=== PATIENT | female | born 1980 | race Caucasian/White ===

== ENCOUNTER → 2017-10-21 | Outpatient (CLI) | payer BC | LOC: M WUC 19:19 | DX: M79.671 Pain in right foot (principal) | CPT/HCPCS: 73630 ==

== ENCOUNTER 2019-05-13 19:23 | Emergency (ER) | payer BC ==
[~2019-05-13] VITALS: Ht 160 cm; Wt 72.7 kg
[2019-05-13 20:20] LABS: HEMATOCRIT 38.4 % (36.0-47.0); HEMOGLOBIN 12.7 g/dl (12.0-15.5); MEAN CORPUSCULAR HEMOGLOBIN 29.5 pg (27.0-33.0); MEAN CORPUSCULAR HGB CONC 33.1 g/dl (32.0-36.5); MEAN CORPUSCULAR VOLUME 89.1 fl (80.0-96.0); PLATELET COUNT, AUTOMATED 236 10^3/uL (150-450); RED BLOOD COUNT 4.31 10^6/uL (4.00-5.40); WHITE BLOOD COUNT 10.2 10^3/uL (4.0-10.0)
[2019-05-13 20:46] LABS: ALBUMIN 3.3 GM/DL (3.2-5.2); ALT/SGPT 20 U/L (12-78); BILIRUBIN,TOTAL 0.2 MG/DL (0.2-1.0); BLOOD UREA NITROGEN 12 MG/DL (7-18); CALCIUM LEVEL 8.5 MG/DL (8.5-10.1); CARBON DIOXIDE LEVEL 28 MEQ/L (21-32); CHLORIDE LEVEL 109 MEQ/L (98-107); CREATININE FOR GFR 0.67 MG/DL (0.55-1.30); GLOMERULAR FILTRATION RATE > 60.0 (>60); GLUCOSE, FASTING 101 MG/DL (70-100); SODIUM LEVEL 140 MEQ/L (136-145); TOTAL PROTEIN 6.7 GM/DL (6.4-8.2)
[2019-05-13 21:02] LABS: HCG, SERUM QUALITATIVE NEGATIVE (NEGATIVE)
[2019-05-13] MEDS ORDERED: DOXYCYCLINE HYCLATE 100 MG TAB PO ONE (21:15)
[2019-05-13] MEDS ORDERED: DOXY100C37 PO (21:15)
[2019-05-13 21:23] VITALS: BP 150/90
== END 2019-05-13 21:25 | disposition home or self-care (01) ==
LOC: M ED 19:23
DX: L03.115 Cellulitis of right lower limb (principal); W57.XXXA Bitten or stung by nonvenomous insect and other nonvenomous arthropods, initial encounter; Y92.89 Other specified places as the place of occurrence of the external cause; Z87.891 Personal history of nicotine dependence

== ENCOUNTER 2020-11-29 21:01 | Emergency (ER) | payer BC ==
[~2020-11-29] VITALS: Ht 160 cm; Wt 82.2 kg
[~2020-11-29 21:01] MED LIST: DOXY100C37 PO
[2020-11-29] MEDS ORDERED: ACETAMINOPHEN 325 MG TAB PO ONE (23:15)
--- NOTE | 2020-11-29 23:49 | REPVR ---
PROCEDURE INFORMATION: Exam: CT Head Without Contrast Exam date and time: 11/29/2020 11:12 PM Age: 40 years old Clinical indication: Injury or trauma; Fall; Concussion/head injury; Consciousness not specified; Additional info: Trauma to head TECHNIQUE: Imaging protocol: Computed tomography of the head without contrast. Radiation optimization: All CT scans at this facility use at least one of these dose optimization techniques: automated exposure control; mA and/or kV adjustment per patient size (includes targeted exams where dose is matched to clinical indication); or iterative reconstruction. COMPARISON: No relevant prior studies available. FINDINGS: Brain: Normal. No hemorrhage. Unremarkable white matter. No mass effect. Cerebral ventricles: No ventriculomegaly. Bones/joints: Unremarkable. No acute fracture. Paranasal sinuses: Visualized sinuses are unremarkable. No fluid levels. Mastoid air cells: Visualized mastoid air cells are well aerated. Soft tissues: Unremarkable. IMPRESSION: No acute intracranial abnormality. Electronically signed by: Alex Sanchez On 11/29/2020 23:49:52 PM
[2020-11-30 00:53] VITALS: BP 157/87
== END 2020-11-30 00:56 | disposition home or self-care (01) ==
LOC: M ED 21:01
DX: S09.90XA Unspecified injury of head, initial encounter (principal); W22.8XXA Striking against or struck by other objects, initial encounter; Y92.89 Other specified places as the place of occurrence of the external cause; Y99.0 Civilian activity done for income or pay

== ENCOUNTER 2022-04-17 23:06 | Emergency (ER) | payer OTHER ==
[~2022-04-17] VITALS: Ht 160 cm; Wt 78.0 kg
[~2022-04-17 23:06] MED LIST changes: +DOXY-443 PO; -DOXY100C37 PO
[2022-04-17 23:09] VITALS: BP 160/85
== END 2022-04-18 02:16 | disposition left against medical advice (07) ==
LOC: M ED 23:06
DX: Z53.29 Procedure and treatment not carried out because of patient's decision for other reasons (principal)